=== PATIENT | male | born 1960 | race Caucasian/White ===

== ENCOUNTER 2016-06-24 09:03 | Inpatient (IN) | payer OTHER ==
[~2016-06-24] VITALS: Ht 185.4 cm; Wt 121.5 kg
[2016-07-01] MEDS ORDERED: METF500T4 PO (10:17)
[2016-07-05] MEDS ORDERED: CHLORHEXIDINE GLUCONATE 4% SOLN 120 ML BTL TOPICAL SCH (06:00)
[2016-07-05] MEDS ORDERED: METOPROLOL TARTRATE 25 MG TAB PO PRN (06:00)
[2016-07-05] MEDS ORDERED: SODIUM CHLORID 0.9% 500 ML IV PRN (06:00)
[2016-07-05] MEDS ORDERED: ceFAZolin 3,000 MG/NS 100 ML (if >120 kg) IV SCH ×2 (06:00)
[2016-07-05] MEDS ORDERED: POVIDONE IODINE 5% (ANTISEPSIS KIT) 4 APPLICATIONS EACH NARE PRN (06:00)
[2016-07-05] MEDS ORDERED: VANCOMYCIN 1000 MG/NS 250 ML (for <70 kg) IV SCH ×2 (06:00)
[2016-07-05] MEDS ORDERED: CHLORHEXIDINE GLUCONATE 2 % 1 PACK (2 CLOTHS) TOPICAL PRN (06:00)
[2016-07-05] MEDS ORDERED: INSULIN HUMAN REGULAR 1,000 UNITS/10 ML VIAL SQ PRN (06:00)
[2016-07-05] MEDS ORDERED: LACTATED RINGER'S 1000 ML IV PRN (06:00)
[2016-07-05] MEDS ORDERED: ENAL5TAB PO (06:05)
[2016-07-05] MEDS ORDERED: SIMV40TA PO (06:06)
[2016-07-05] MEDS ORDERED: MULT-267 PO (06:07)
[2016-07-05 06:08] VITALS: BP 146/86; PULSE 92; RESP 16; TEMP 98.4; O2SAT 97
[2016-07-05] MEDS ORDERED: GENTAMICIN SULFATE 80 MG/2 ML VIAL ONE (06:54)
[2016-07-05] MEDS ORDERED: ceFAZolin INJ 1,000 MG VIAL ONE (06:54)
[2016-07-05] MEDS ORDERED: ACETAMINOPHEN 1000 MG/100 ML VIAL IV ONE (06:57)
[2016-07-05] MEDS ORDERED: FAMOTIDINE 20 MG/2 ML VIAL ONE (06:57)
[2016-07-05] MEDS ORDERED: MIDAZOLAM HCL 2 MG/2 ML VIAL ONE (06:57)
[2016-07-05] MEDS ORDERED: BUPIVACAINE/EPINEPHRINE 0.25% PF 10 ML VIAL ONE (07:24)
--- NOTE | 2016-07-05 08:26 | PD.OP ---
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 Surgeon: Yash Desai Public Works Technician(s): JOSHUA Calvo PA-C The surgical procedure was assisted by my physician assistant professor of religion. My P.A. presence was necessary throughout this case for the manipulation and positioning of the surgical extremity. My P.A. was assisting me throughout the duration of this procedure. The skill set of a physician assistant professor of religion was medically necessary to complete this procedure. During the surgical case the surgical technology instructor was working at the back table and the physician assistant professor of religion was directly assisting me. Operation and Findings: Adonis has been seen and evaluated in clinic preoperatively. He has a long history of chronic left foot infection with multiple wound infections and osteomyelitis. He also has significant left leg weakness secondary to postpolio syndrome. He has developed significant left knee pain is well. Treatment options were discussed in depth with patient and he wished to proceed with above-knee amputation. Patient also had preoperative evaluation by a automotive parts specialist to discuss prosthetic options as well as the difficulties with above -knee of dictation. All questions were answered. Informed consent was obtained preoperatively and operative site was marked. Patient was found to have a chronically infected left lower extremity. Patient was brought to the OR and placed on the OR table. IV sedation and GETA were administered by anesthesia and IV antibiotics were given. The Operative leg was prepped with alcohol, followed by Hibiclens and draped in the usual sterile fashion. Time out procedure was performed. The procedure began with a standard incision for above amputation. The subcutaneous tissue was dissected with Bovie. The quadriceps muscle and fascia were incised with Bovie. The hamstring muscles were also incised. Soft tissue was retracted from the femur. Oscillating saw was used to cut through the femur. Tourniquet was now inflated. The tourniquet time was a total of 10 minutes. The posterior soft tissue was now incised with Bovie. The lower extremity was now removed from the field. At this point, attention was turned to hemostasis. The femoral vessels were identified and were now ligated with silk suture ties. The sciatic nerve was identified. The nerve sheath was injected with a 0.25% Marcaine with epinephrine for pain relief. The nerve was transected proximal to the femoral cut. The edges of the bone were smoothed with a rasp. The tourniquet was released and hemostasis was confirmed. A drain was placed deep. Attention was now turned to closure. The quadriceps fascia was now closed to the posterior hamstring fascia with #1 Vicryl. The subcutaneous tissues were closed with 3-0 Vicryl and skin was closed with harshil. Sterile dressings were applied and CKS was applied. The patient was awakened and transferred to recovery in stable condition. Needle and sponge counts were correct. Yash Desai MD July 05, 2016 08:26
[2016-07-05] MEDS ORDERED: ACETAMINOPHEN/HYDROcodone 325 MG/10 MG TAB PO PRN ×2 (08:30)
[2016-07-05] MEDS ORDERED: SODIUM CHLORIDE 0.9% FLUSH 5 ML FLUSH IVF PRN (08:30)
[2016-07-05] MEDS ORDERED: MORPHINE SULFATE 4 MG/ML INJ IV PUSH PRN (08:30)
[2016-07-05] MEDS ORDERED: fentaNYL CITRATE 250 MCG/5 ML AMP ONE (08:57)
[2016-07-05] MEDS: SODIUM CHLORIDE 0.9% FLUSH 5 ML FLUSH IVF SCH ×2 (09:00→19:51)
[2016-07-05] MEDS: metFORMIN HCL 500 MG TAB PO SCH ×2 (09:00→17:04)
[2016-07-05] MEDS: ENALAPRIL MALEATE 5 MG TAB PO SCH (09:00)
[2016-07-05] MEDS ORDERED: PILL SPLITTER OTHER PRN (09:00)
[2016-07-05] MEDS ORDERED: DO NOT ADM ANY ANTICOAGULANT DRUGS PRN (09:00)
[2016-07-05] MEDS ORDERED: *morphine SULFATE 8 MG/ML PERIprocedure ONLY ONE ×2 (09:05→09:26)
[2016-07-05] MEDS ORDERED: BUPIVACAINE HCL PF 0.5% 30 ML VIAL NERV BLOCK ONE (09:17)
[2016-07-05] MEDS ORDERED: HYDR-3583 PO (09:59)
[2016-07-05] MEDS ORDERED: XARE10TA PO (09:59)
[2016-07-05] MEDS ORDERED: NEUR300C PO (10:00)
[2016-07-05] MEDS ORDERED: WALKER/ADULT/FO1 MIS (10:05)
[2016-07-05] MEDS ORDERED: WHEEMIS3 (10:05)
[2016-07-05] MEDS: LACTATED RINGER'S 1000 ML INJ 1,000 ML IV SCH ×2 (10:45→19:38)
[2016-07-05 11:34] VITALS: O2SAT 98
[2016-07-05 12:00] VITALS: BP 111/67; PULSE 83; RESP 19; TEMP 95.9; O2SAT 96
[2016-07-05] MEDS ORDERED: PROPOFOL 200 MG/20 ML AMP IV ONE (12:00)
[2016-07-05] MEDS ORDERED: NEOSTIGMINE 3 MG/3 ML SYR IV ONE (12:00)
[2016-07-05] MEDS ORDERED: ONDANSETRON HCL 4 MG/2 ML VIAL IV PUSH ONE (12:00)
[2016-07-05] MEDS ORDERED: PHENYLEPH/NS 1000 MCG/10 ML SYR IV ONE (12:00)
[2016-07-05] MEDS: GABAPENTIN 300 MG CAP PO SCH ×2 (12:25→17:03)
[2016-07-05] MEDS: PRAVASTATIN SOD 80 MG TAB PO SCH (12:36)
[2016-07-05 15:24] VITALS: BP 111/63; PULSE 83; RESP 19; TEMP 97.4; O2SAT 94
[2016-07-05 16:06] VITALS: O2SAT 94
[2016-07-05 20:00] VITALS: BP 133/66; PULSE 82; RESP 22; TEMP 98.9; O2SAT 97
[2016-07-06] VITALS: BP 124/66; PULSE 82; RESP 20; TEMP 98.1; O2SAT 95
[2016-07-06 04:00] VITALS: BP 115/60; PULSE 86; RESP 20; TEMP 98.7; O2SAT 94
[2016-07-06] MEDS: LACTATED RINGER'S 1000 ML INJ 1,000 ML IV SCH ×3 (06:20→21:31)
--- NOTE | 2016-07-06 06:49 | PD.ORT.PN ---
Subjective Subjective Remarks s/p left AKA - POD 1 -doing well. pain controlled. no complaints. has been out of bed with walker with minimal difficulty Objective Vitals Vital Signs Date Time Temp Pulse Resp B/P Pulse Ox O2 Delivery O2 Flow Rate FiO2 07/06/16 04:00 98.7 86 20 115/60 94 07/06/16 00:00 98.1 82 20 124/66 95 07/05/16 20:00 98.9 82 22 133/66 97 07/05/16 19:53 Room Air 07/05/16 18:58 Nasal Cannula 3.00 07/05/16 16:06 94 21 07/05/16 15:24 97.4 83 19 111/63 94 07/05/16 12:00 95.9 83 19 111/67 96 07/05/16 11:34 98 Nasal Cannula 3.00 07/05/16 10:30 98.3 82 16 127/58 97 Nasal Cannula 3 07/05/16 10:00 78 17 138/63 96 Nasal Cannula 3 07/05/16 09:45 77 16 154/72 96 Nasal Cannula 3 07/05/16 09:30 74 15 136/70 96 Nasal Cannula 3 07/05/16 09:15 74 17 133/81 97 Nasal Cannula 3 07/05/16 09:00 76 15 145/88 97 Nasal Cannula 3 07/05/16 08:54 97.7 81 15 140/87 97 Nasal Cannula 3 I/O 07/05/16 07/05/16 07/05/16 07/06/16 07/06/16 07/06/16 07:00 15:00 23:00 07:00 15:00 23:00 Intake Total 1373 ml 1229 ml 1085 ml Output Total 210 ml 5 ml 10 ml Balance 1163 ml 1224 ml 1075 ml Intake Oral 780 ml 240 ml IV Total 573 ml 449 ml 845 ml Other 800 ml Output Urine Total 150 ml Drainage Total 10 ml 5 ml 10 ml Estimated Blood Loss 50 ml # Voids 1 2 # Bowel Movements 0 0 Objective Remarks LLE: +AKA. dressings clean and dry. intact. +drain Assessment & Plan Assessment and Plan 1) Left AKA - POD 1 -NWB -maintain dressings/drain -plan for dressing changes POD 3 -will plan home with [facility] on Monday -f/u with [facility]em[facility] or [place] in 2 weeks Juancarlos Tapia July 06, 2016 06:49
--- NOTE | 2016-07-06 06:50 | HHI.FF ---
Face to Face Verification Diagnosis: (1) Above knee amputation of left lower extremity Physical Therapy Gait training Left LE Weight Bearing: Non WB Nursing Dressing Changes: Daily dressing change, Kwasi wrap, 4x4s, Xeroform I have seen patient Adonis Tellez on 07/06/16. My clinical findings support the need for the requested home health care services because: Ltd mobility - disease progression I certify that my clinical findings support that this patient is homebound because: Post-op weakness Juancarlos Tapia July 06, 2016 06:50
[2016-07-06 07:44] LABS: HEMATOCRIT 35.3 % (39.0-51.0); REVIEW FLAG FINAL
[2016-07-06 08:00] VITALS: BP 138/72; PULSE 84; RESP 18; TEMP 99; O2SAT 93
[2016-07-06] MEDS: SODIUM CHLORIDE 0.9% FLUSH 5 ML FLUSH IVF SCH ×2 (09:00→21:29)
[2016-07-06] MEDS: PRAVASTATIN SOD 80 MG TAB PO SCH (09:40)
[2016-07-06] MEDS: GABAPENTIN 300 MG CAP PO SCH ×3 (09:40→17:45)
[2016-07-06] MEDS: metFORMIN HCL 500 MG TAB PO SCH ×2 (09:40→17:45)
[2016-07-06] MEDS: ENALAPRIL MALEATE 5 MG TAB PO SCH (09:40)
[2016-07-06 12:00] VITALS: BP 153/82; PULSE 71; RESP 18; TEMP 98.7; O2SAT 95
[2016-07-06 16:00] VITALS: BP 110/62; PULSE 87; RESP 18; TEMP 99; O2SAT 95
[2016-07-06 21:29] VITALS: BP 153/59; PULSE 95; RESP 19; TEMP 98.3; O2SAT 94
[2016-07-07] VITALS: BP 129/71; PULSE 89; RESP 18; TEMP 98.9; O2SAT 97
[2016-07-07 05:58] VITALS: BP 142/81; PULSE 76; RESP 18; TEMP 98.3; O2SAT 96
[2016-07-07] MEDS: GABAPENTIN 300 MG CAP PO SCH ×3 (07:19→15:47)
[2016-07-07] MEDS: ENALAPRIL MALEATE 5 MG TAB PO SCH (07:20)
[2016-07-07] MEDS: SODIUM CHLORIDE 0.9% FLUSH 5 ML FLUSH IVF SCH ×2 (07:20→20:05)
[2016-07-07] MEDS: metFORMIN HCL 500 MG TAB PO SCH ×2 (07:20→15:47)
[2016-07-07] MEDS: PRAVASTATIN SOD 80 MG TAB PO SCH (07:20)
[2016-07-07] MEDS: LACTATED RINGER'S 1000 ML INJ 1,000 ML IV SCH ×2 (07:22→20:01)
[2016-07-07 08:00] VITALS: BP 118/75; PULSE 83; RESP 18; TEMP 97.5; O2SAT 92
--- NOTE | 2016-07-07 09:59 | PD.ORT.PN ---
Subjective Subjective Remarks Resting comfortably with pain controlled Objective Vitals Vital Signs Date Time Temp Pulse Resp B/P Pulse Ox O2 Delivery O2 Flow Rate FiO2 07/07/16 08:00 97.5 83 18 118/75 92 07/07/16 07:25 Room Air 07/07/16 05:58 98.3 76 18 142/81 96 07/07/16 00:00 98.9 89 18 129/71 97 07/06/16 21:29 98.3 95 19 153/59 94 07/06/16 18:42 Room Air 07/06/16 16:00 99.0 87 18 110/62 95 07/06/16 12:00 98.7 71 18 153/82 95 I/O 07/06/16 07/06/16 07/06/16 07/07/16 07/07/16 07/07/16 07:00 15:00 23:00 07:00 15:00 23:00 Intake Total 1085 ml 960 ml 360 ml 480 ml Output Total 10 ml 500 ml 0 ml 500 ml Balance 1075 ml 460 ml 360 ml -20 ml Intake Oral 240 ml 960 ml 360 ml 480 ml IV Total 845 ml Output Urine Total 500 ml 500 ml Drainage Total 10 ml 0 ml 0 ml # Voids 2 2 # Bowel Movements 0 0 0 Result Diagram: 07/06/16 0701 Objective Remarks LLE: +AKA. dressings clean and dry. intact. +drain Assessment & Plan Assessment and Plan 1) Left AKA - POD 2 -NWB -maintain dressings/drain -plan for dressing changes POD 3 -will plan home with [facility] on Monday -f/u with Noem[facility] or [place] in 2 weeks Main Madden Jr. Jul 07, 2016 09:59
[2016-07-07 11:26] VITALS: BP 125/60; PULSE 86; RESP 18; TEMP 97.4; O2SAT 97
[2016-07-07 15:44] VITALS: BP 140/76; PULSE 83; RESP 18; TEMP 98.7; O2SAT 96
[2016-07-07] MEDS: MAGNESIUM HYDROXIDE SUSP 30 ML CUP PO SCH (20:01)
[2016-07-07] MEDS: POLYETHYLENE GLYCOL 17 GM PKG PO SCH (20:01)
[2016-07-07] MEDS: DOCUSATE SODIUM 100 MG CAP PO SCH (20:01)
[2016-07-07] MEDS: BISACODYL EC 5 MG TABEC PO SCH (20:01)
[2016-07-07 20:48] VITALS: BP 127/95; PULSE 93; RESP 18; TEMP 99.5; O2SAT 94
[2016-07-08 00:14] VITALS: BP 119/58; PULSE 94; RESP 18; TEMP 98.1; O2SAT 96
[2016-07-08] MEDS: LACTATED RINGER'S 1000 ML INJ 1,000 ML IV SCH ×2 (07:05→08:20)
[2016-07-08] MEDS: MAGNESIUM HYDROXIDE SUSP 30 ML CUP PO SCH (07:06)
[2016-07-08] MEDS: POLYETHYLENE GLYCOL 17 GM PKG PO SCH (07:06)
--- NOTE | 2016-07-08 07:48 | PD.ORT.PN ---
Subjective Subjective Remarks Resting comfortably with pain controlled Objective Vitals Vital Signs Date Time Temp Pulse Resp B/P Pulse Ox O2 Delivery O2 Flow Rate FiO2 07/08/16 00:14 98.1 94 18 119/58 96 07/07/16 20:48 99.5 93 18 127/95 94 07/07/16 15:44 98.7 83 18 140/76 96 07/07/16 11:26 97.4 86 18 125/60 97 07/07/16 08:00 97.5 83 18 118/75 92 I/O 07/07/16 07/07/16 07/07/16 07/08/16 07/08/16 07/08/16 07:00 15:00 23:00 07:00 15:00 23:00 Intake Total 480 ml 960 ml 720 ml 360 ml Output Total 500 ml 250 ml 25 ml 5 ml Balance -20 ml 710 ml 695 ml 355 ml Intake Oral 480 ml 960 ml 720 ml 360 ml Output Urine Total 500 ml 250 ml Drainage Total 0 ml 25 ml 5 ml # Voids 3 5 4 # Bowel Movements 0 2 1 0 Result Diagram: 07/06/16 0701 Objective Remarks LLE: +AKA. dressings clean and dry. intact. +drain. Dressing removed, drain removed. Incision healing well with no signs of necrosis or wound complications New dressing reapplied with Xeroform, 4 x 4's, ABDs and Kwasi wrap Assessment & Plan Assessment and Plan 1) Left AKA - POD 3 -NWB -maintain dressings/drain -daily dressing changes -will plan home with [facility] today -f/u with Noem[facility] or [place] in 2 weeks Main Madden Jr. Jul 08, 2016 07:48
[2016-07-08] MEDS: SODIUM CHLORIDE 0.9% FLUSH 5 ML FLUSH IVF SCH (08:20)
[2016-07-08 08:22] VITALS: BP 125/95; PULSE 82; RESP 16; TEMP 98; O2SAT 97
[2016-07-08] MEDS: BISACODYL EC 5 MG TABEC PO SCH (08:26)
[2016-07-08] MEDS: DOCUSATE SODIUM 100 MG CAP PO SCH (08:26)
[2016-07-08] MEDS: metFORMIN HCL 500 MG TAB PO SCH (08:27)
[2016-07-08] MEDS: PRAVASTATIN SOD 80 MG TAB PO SCH (08:27)
[2016-07-08] MEDS: GABAPENTIN 300 MG CAP PO SCH (08:28)
[2016-07-08] MEDS: ENALAPRIL MALEATE 5 MG TAB PO SCH (08:28)
== END 2016-07-08 09:10 | disposition home health service (06) | DRG 476 ==
LOC: HSDI 07-05 05:25 → N06B 07-05 10:45 → N06A 07-05 17:32
PROVIDERS: ADMIT Orthopaedic Surgery Orthopaedic Trauma; ATTEND Orthopaedic Surgery Orthopaedic Trauma
PROC: 3E0T3BZ Introduction of Anesthetic Agent into Peripheral Nerves and Plexi, Percutaneous Approach (ICD-10-PCS; 2016-07-05)
PROC: 0Y6D0Z3 Detachment at Left Upper Leg, Low, Open Approach (ICD-10-PCS; principal; 2016-07-05 07:13)
DX: M86.672 Other chronic osteomyelitis, left ankle and foot (principal); G14 Postpolio syndrome; I10 Essential (primary) hypertension; M23.92 Unspecified internal derangement of left knee; E78.5 Hyperlipidemia, unspecified; I73.9 Peripheral vascular disease, unspecified; E11.9 Type 2 diabetes mellitus without complications; Z79.84 Long term (current) use of oral hypoglycemic drugs; Z87.891 Personal history of nicotine dependence
CPT/HCPCS: 82948; 85014; 85018; 88307; 88311; 94150; J0131; J0690; J1580; J2250; J2270; J2370; J2405; J2710; J3010; J3370; J7050; J7120; L1830